=== PATIENT | male | born 2000 | race Caucasian/White ===

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

== ENCOUNTER 2020-07-25 09:30 | Emergency (ER) | payer OTHER ==
[2020-07-25 09:43] VITALS: BP 124/85; PULSE 77; TEMP 98.1; BMI 25.1
[2020-07-25] MEDS ORDERED: KETOROLAC TROMETHAMINE 30 MG/1 ML VIAL IM ONE (10:23)
[2020-07-25] MEDS ORDERED: KETOROLAC TROMETHAMINE 30 MG/1 ML VIAL ONE (11:08)
[2020-07-25 12:10] LABS: PH,URINE 5.5 (5.0-8.0); URINE APPEARANCE CLEAR; URINE BILIRUBIN NEGATIVE (NEGATIVE); URINE COLOR YELLOW; URINE GLUCOSE (UA) NEGATIVE (NEGATIVE); URINE KETONE NEGATIVE (NEGATIVE); URINE LEUK ESTERASE NEGATIVE (NEGATIVE); URINE NITRITE NEGATIVE (NEGATIVE); URINE PROTEIN NEGATIVE (NEGATIVE); URINE UROBILINOGEN 0.2 mg/dL (0.2-1.0)
== END 2020-07-25 12:45 | disposition home or self-care (01) ==
LOC: JER 09:30
PROC: 3E023GC Introduction of Other Therapeutic Substance into Muscle, Percutaneous Approach (ICD-10-PCS; principal; 2020-07-25)
DX: M54.5 Low back pain (principal)
CPT/HCPCS: 81003; 87086; 87186; 99284-25

== ENCOUNTER 2021-05-20 13:51 | Emergency (ER) | payer OTHER ==
[2021-05-20 14:12] VITALS: TEMP 98.7; BMI 28.0
[2021-05-20 15:32] VITALS: BP 138/76; PULSE 92
== END 2021-05-20 15:15 | disposition home or self-care (01) ==
LOC: JER 13:51
DX: R19.7 Diarrhea, unspecified (principal)
CPT/HCPCS: 93005; 93010; 99283-25; C9803; U0003; U0005